=== PATIENT | female | born 1950 | race Caucasian/White ===

== ENCOUNTER 2017-08-29 19:40 | Emergency (ER) | payer OTHER ==
[~2017-08-29] VITALS: Ht 162.6 cm; Wt 105.4 kg
[~2017-08-29 19:40] MED LIST: ALEVE220 M1 PO; ASPIRIN E.C.81 M2 PO; BENICAR HCT1 TABLE2 PO; HYDROCHLOROTHIA25 MG PO; MECLIZINE HCL25 MG PO; Milk Of Magnesia,MOM PO; PERCOCET 5/31 TABLET PO; SIMVASTATIN20 MG PO; Tricor PO; ULTRAM50 MG PO; VALIUM5 MG PO; ZOFRAN4 MG PO
[2017-08-29] MEDS ORDERED: ULTRACET1 TABLET PO (23:08)
[2017-08-29] MEDS ORDERED: MOTRIN600 MG PO (23:08)
[2017-08-29] MEDS ORDERED: NORCO 5/3251 TABLET PO (23:45)
[2017-08-30 00:37] VITALS: BP 147/74
== END 2017-08-30 00:38 | disposition home or self-care (01) ==
LOC: EME 19:40
DX: M66.0 Rupture of popliteal cyst (principal); R60.0 Localized edema
CPT/HCPCS: 93971; 99281; 99284